=== PATIENT | female | born 1975 | race African-American/Black ===

== ENCOUNTER 2016-12-15 14:06 | Emergency (ER) | payer MEDICAID, OTHER ==
[~2016-12-15] VITALS: Ht 157.5 cm; Wt 79.0 kg
[2016-12-15 15:30] VITALS: BP 118/80
[2016-12-15] MEDS ORDERED: KETOROLAC 60MG/2ML VIAL IM ONE (15:30)
== END 2016-12-15 16:50 | disposition home or self-care (01) ==
LOC: ER 15:12
DX: D17.9 Benign lipomatous neoplasm, unspecified (principal); F17.200 Nicotine dependence, unspecified, uncomplicated; Z88.0 Allergy status to penicillin
CPT/HCPCS: 96372; 99283; J1885; Z7610